=== PATIENT | male | born 1945 | race Caucasian/White ===

== ENCOUNTER 2025-01-27 08:37 | Outpatient (CLI) | payer OTHER | END 2025-01-27 08:42 | disposition home or self-care (01) | LOC: TOM 08:37 | PROVIDERS: ATTEND Internal Medicine Gastroenterology | DX: R10.10 Upper abdominal pain, unspecified (principal); R10.30 Lower abdominal pain, unspecified; K57.30 Diverticulosis of large intestine without perforation or abscess without bleeding | CPT/HCPCS: 74177; Q9965 ==

== ENCOUNTER 2025-03-23 09:54 | Outpatient (CLI) | payer OTHER ==
[2025-03-24] MEDS ORDERED: TOPROL XL50 M1 PO (13:51)
[2025-03-24] MEDS ORDERED: ATORVALIQ20 MG/5 ML PO (13:51)
[2025-03-24] MEDS ORDERED: LASIX20 MG PO (13:51)
[2025-03-24] MEDS ORDERED: ECOTRIN81 MG PO (13:52)
[2025-03-24] MEDS ORDERED: FOLIC ACID0.8 M1 (13:52)
== END 2025-03-23 10:01 | disposition home or self-care (01) ==
LOC: RAD 09:54
PROVIDERS: ATTEND Surgery
DX: Z01.810 Encounter for preprocedural cardiovascular examination (principal); K80.20 Calculus of gallbladder without cholecystitis without obstruction

== ENCOUNTER → 2025-03-31 | Day surgery (SDC) | payer OTHER ==
[2025-03-24 13:52] VITALS: BP 150/90
[~2025-03-31] VITALS: Ht 182.9 cm; Wt 87.5 kg
[~2025-03-31] MED LIST: ATORVALIQ20 MG/5 ML PO; AZOR 10-20 MG1 EACH; ECOTRIN81 MG PO; FOLIC ACID0.8 M1; LASIX20 MG PO; NEURONTIN300 MG PO; PERCOCET 5-3251 EACH PO; SUGAMMADEX SODIUM 200 MG/2 ML VIAL IV ONE; TOPROL XL50 M1 PO; VASOTEC10 MG; VASOTEC20 MG
== END | disposition home or self-care (01) ==
LOC: ADM 03-24 12:15 → CIR.AMB 05:42
PROVIDERS: ATTEND Surgery
DX: K80.20 Calculus of gallbladder without cholecystitis without obstruction (principal); Z53.09 Procedure and treatment not carried out because of other contraindication

== ENCOUNTER 2025-04-28 06:00 | Day surgery (SDC) | payer OTHER ==
[2025-04-22 09:37] VITALS: BP 133/75
[2025-04-22 09:49] LABS: BASO % 0.7 % (0.1-1.2); EOS # 0.33 (0.04-0.54); EOS % 4.7 % (0.7-7.0); LYMPH # 1.19 (1.18-3.74); LYMPH % 17.1 % (19.3-53.1); MEAN PLATELET VOLUME 9.70 fl (9.4-12.4); MONO # 0.83 (0.24-0.82); MONO % 11.9 % (4.7-12.5); NEUT # 4.55 (1.56-6.13); NEUT % 65.3 % (34.0-71.1); RED CELL DISTRIBUTION WIDTH 14.7 % (11.6-14.4)
[2025-04-22 10:06] LABS: URINE APPEARANCE Clear; URINE BILIRRUBIN Negative (NEGATIVE); URINE BLOOD Negative; URINE COLOR Yellow; URINE GLUCOSE Negative (NEGATIVE); URINE KETONE Negative (NEGATIVE); URINE LEUKOCYTE Negative; URINE NITRATE Negative; URINE PROTEIN Negative (NEGATIVE); URINE UROBILINOGEN 0.2 E.U./dl
[2025-04-22 10:07] LABS: INR 1.0
[2025-04-22 10:08] LABS: BUN CREA RATIO 10.0 (7.0-25.0); CREATININE SERUM 1.07 mg/dL (0.70-1.30); GFR 67.01; GLUCOSE FASTING 108.0 mg/dL (65-100); OSMOLALITY SERUM 279.0 MOSM/KG (275-295)
[2025-04-22 10:12] LABS: URINE BACTERIA 2.3 uL (0.0-1933); URINE CAST 0.29 uL (0.0-1.40); URINE EPITHELIAL CELLS 0.0 uL (0.0-38.8); URINE RBC 0.5 uL (0.0-20.8); URINE WBC 0.4 uL (0.0-23.2)
[~2025-04-28] VITALS: Ht 182.9 cm; Wt 86.2 kg
[~2025-04-28 06:00] MED LIST changes: -NEURONTIN300 MG PO; -PERCOCET 5-3251 EACH PO; -SUGAMMADEX SODIUM 200 MG/2 ML VIAL IV ONE
[2025-04-28] MEDS ORDERED: LIDOCAINE HCL 1%/EPINEPHRINE 20ML VIAL IJ ONE (06:58)
[2025-04-28] MEDS ORDERED: BUPIVACAINE HCL/MPF 0.5% 30ML VIAL ONE (06:58)
[2025-04-28] MEDS ORDERED: POVIDONE-IODINE 118 ML BOTT TOP ONE (06:58)
[2025-04-28] MEDS ORDERED: CEFTRIAXONE SODIUM 2,000 MG VIAL ONE (06:58)
[2025-04-28] MEDS ORDERED: ENOXAPARIN SODIUM 40 MG/0.4 ML SYRINGE SUBCUTANEO ONE (06:58)
[2025-04-28] MEDS ORDERED: METRONIDAZOLE/SODIUM CHLORIDE 500 MG/100 ML PIGGYBACK IV ONE (06:59)
[2025-04-28] MEDS ORDERED: SUGAMMADEX SODIUM 200 MG/2 ML VIAL IV ONE (09:15)
[2025-04-28] MEDS ORDERED: PERCOCET 5-3251 EACH PO (09:29)
[2025-04-28] MEDS ORDERED: NEURONTIN300 MG PO (09:29)
== END 2025-04-28 11:30 | disposition home or self-care (01) ==
LOC: CIR.AMB 06:00
PROVIDERS: ATTEND Surgery
DX: K80.10 Calculus of gallbladder with chronic cholecystitis without obstruction (principal)